=== PATIENT | female | born 1985 | race Two or more races ===

== ENCOUNTER 2021-03-03 10:41 | Emergency (ER) | payer MEDICAID, OTHER ==
[~2021-03-03] VITALS: Ht 167.6 cm; Wt 81.2 kg
[2021-03-03 11:33] VITALS: BP 122/76
[2021-03-03] MEDS ORDERED: KETOROLAC TROMETH 60MG/2ML VIAL IM ONE (11:45)
== END 2021-03-03 12:21 | disposition home or self-care (01) ==
LOC: ER 10:41
DX: M54.42 Lumbago with sciatica, left side (principal); M54.41 Lumbago with sciatica, right side
CPT/HCPCS: 96372; 99283; J1885